=== PATIENT | male | born 1995 | race African-American/Black ===

== ENCOUNTER → 2023-03-01 13:21 | Outpatient (BNVA) | payer OTHER, SELFPAY | PROVIDERS: Visit Provider Physician Assistant | DX: S67.197A Crushing injury of left little finger, initial encounter (principal); S67.22XA Crushing injury of left hand, initial encounter; W31.9XXA Contact with unspecified machinery, initial encounter | CPT/HCPCS: 99204 ==

== ENCOUNTER → 2023-03-07 12:11 | Outpatient (BNVA) | payer OTHER, SELFPAY | PROVIDERS: Visit Provider Physician Assistant | DX: S67.197A Crushing injury of left little finger, initial encounter (principal); S67.22XA Crushing injury of left hand, initial encounter; W31.9XXA Contact with unspecified machinery, initial encounter | CPT/HCPCS: 99215 ==

== ENCOUNTER → 2023-03-21 10:16 | Outpatient (BNVA) | payer OTHER, SELFPAY | PROVIDERS: Visit Provider Physician Assistant | DX: S62.607D Fracture of unspecified phalanx of left little finger, subsequent encounter for fracture with routine healing (principal); W31.9XXD Contact with unspecified machinery, subsequent encounter | CPT/HCPCS: 99214 ==